=== PATIENT | male | born 1955 | race Caucasian/White ===

== ENCOUNTER 2019-02-10 11:00 | Emergency (ER) | payer BC ==
[~2019-02-10] VITALS: Ht 182.9 cm; Wt 65.9 kg
[2019-02-10 11:04] VITALS: TEMP 97.6
[2019-02-10 11:17] LABS: BASO # 0.1 (0.0-0.2); BASO % 0.7 % (0.0-2.0); EOS # 0.4 (0.0-0.7); GRAN # 7.8 (1.4-6.5); GRAN % 66.9 % (42.2-75.2); HEMATOCRIT 50.1 % (42.0-52.0); HEMOGLOBIN 16.9 g/dl (13.5-18.0); LYMPH # 2.4 (1.2-3.4); LYMPH % 20.3 % (20.0-51.0); MEAN CELL VOLUME 91 fl (80.0-100.0); MEAN CORPUSCULAR HEMOGLOBIN 31 pg (27.0-31.0); MEAN CORPUSCULAR HGB CONC 34 g/dl (33.0-37.0); MONO % 8.8 % (1.7-9.3); PLATELET COUNT 204 K/mm3 (130-400); REDCELL DISTRIBUTION WIDTH-CV 13.8 % (11.5-14.5)
[2019-02-10] MEDS ORDERED: VERELAN120 MG PO (11:19)
[2019-02-10 11:28] LABS: ALANINE AMINOTRANSFERASE 10 U/L (21-72); ALBUMIN 4.7 gm/dL (3.5-5.0); ALKALINE PHOSPHATASE 55 U/L (50-136); ANION GAP 11 mmol/L (7-16); AST,SGOT 25 U/L (15-37); BILIRUBIN,TOTAL 0.8 mg/dL (0.0-1.0); BLOOD UREA NITROGEN 11 mg/dL (9-20); CALCIUM 9.4 mg/dL (8.4-10.2); CARBON DIOXIDE 29 mmol/L (22-30); CHLORIDE 104 mmol/L (98-107); CREATININE, serum 0.79 (0.66-1.25); GLUCOSE 84 mg/dL (74-106); LIPASE 59 U/L (23-300); POTASSIUM 4.1 mmol/L (3.4-5.0); SODIUM 143 mmol/L (137-145); TOTAL PROTEIN 7.8 gm/dL (6.4-8.2)
[2019-02-10 11:31] LABS: PROTHROMBIN TIME 11.8 SECONDS (9.7-12.8)
[2019-02-10 11:34] LABS: PARTIAL THROMBOPLASTIN TIME 32.3 SECONDS (26.0-37.0)
[2019-02-10 11:46] LABS: TROPONIN-I < 0.012 ng/mL (0.000-0.035)
[2019-02-10 16:16] VITALS: BP 106/72; PULSE 55
== END 2019-02-10 16:15 | disposition home or self-care (01) ==
LOC: COL.ER 11:00
PROVIDERS: Emergency Medicine
DX: R07.89 Other chest pain (principal); F41.9 Anxiety disorder, unspecified; F17.210 Nicotine dependence, cigarettes, uncomplicated

== ENCOUNTER → 2020-09-16 | Outpatient (CLI) | payer MEDICARE ==
[~2020-09-16] MED LIST: VERELAN120 MG PO
== END ==
LOC: COL.RAD 13:24
DX: Z12.2 Encounter for screening for malignant neoplasm of respiratory organs (principal); F17.210 Nicotine dependence, cigarettes, uncomplicated

== ENCOUNTER → 2022-09-21 | Outpatient (CLI) | payer MEDICARE | LOC: COL.RAD 09-09 14:15 | DX: I70.0 Atherosclerosis of aorta (principal); F17.210 Nicotine dependence, cigarettes, uncomplicated ==